=== PATIENT | male | born 1985 | race Caucasian/White ===

== ENCOUNTER 2018-06-14 20:54 | Emergency (ER) | payer BC, OTHER ==
--- NOTE | 2018-06-14 21:42 | EDPHY ---
H & P Time Seen by Provider: 06/14/18 21:24 HPI/ROS: HPI Upper lip laceration. 32-year-old male by private vehicle with significant other. This patient was at work. He had a wrench fall and hit him in the mid upper lip. He sustained a through and through mid upper lip laceration involving the vermilion border. His tetanus status is up-to-date. No other injury or complaint. He denies any dental pain. No malocclusion of the jaw. No neck pain. No loss of consciousness. ROS: Constitutional: No fever, no chills. No weakness. Musculoskeletal: No back pain. No neck pain. As above Skin: No rashes. As above. Neurological: No headache. Past medical history: Hypothyroid. Social history: Chews tobacco. No alcohol. Here with significant other. Physical Exam: General Appearance: Alert, no distress. This patient is responding to questions appropriately and in full sentences. This patient appears well- hydrated and well-nourished. Eyes: Pupils equal and round no pallor or injection. No lid edema, erythema or injection. ENT, Mouth: Significant for a through and through macerated and stellate type mid upper lip laceration involving the vermilion border and with some tissue loss. No foreign body on gross exploration. He has a 0.5 cm puncture wound mid inner upper lip mucosa. Mucous membranes are moist. The pharyngeal tissues are unremarkable. No edema or swelling. No asymmetry suggestive of abscess. No erythema or exudates. Dentition is intact. No malocclusion of the jaw. Neurological: Motor sensory function is grossly intact. Cranial nerves are normal. Gait is normal. Skin: Warm and dry, no rashes. Musculoskeletal: Neck is supple and nontender. Extremities are symmetrical. All joints range without pain or impingement. Psychiatric: No agitation. No depression. Database: EKG: Imaging: Procedures: Procedure: Laceration repair. Verbal consent was obtained from the patient. The 2.5 cm laceration on the mid upper lip was anesthetized in the usual fashion. The wound was irrigated, draped and explored to its base with a gloved finger. No foreign body was identified. The 1st stitch was placed to align the vermilion border. The wound was repaired with 8, 6.0 Prolene interrupted sutures on the outside and 3 , 5.0 Vicryl Rapide sutures to repair the inner lip mucosa. The wound repair was tolerated well and there were no complications. The procedure was performed by myself. Emergency department course: After suture repair, wound care was discussed with the patient. Follow-up and return to emergency department precautions reviewed. Scar prevention discussed. He feels comfortable going home with his girlfriend. Follow-up and return to emergency department precautions reviewed. All of their questions were answered. The patient was discharged in good condition. Differential Diagnosis: The differential diagnosis on this patient includes but is not limited to complex mid upper lip laceration. This represents a partial list of diagnoses considered. These considerations are based on history, physical exam, past history, reassessment and diagnostic testing. Smoking Status: Never smoked Constitutional: Initial Vital Signs Temperature (C) 36.6 C 06/14/18 21:00 Heart Rate 88 06/14/18 21:00 Respiratory Rate 20 06/14/18 21:00 O2 Sat (%) 97 06/14/18 21:00 O2 Delivery Mode Room Air Allergies/Adverse Reactions: No Known Allergies Allergy (Unverified 06/14/18 21:00) Home Medications: Medication Instructions Recorded Levothyroxine 06/14/18 Departure - Departure Disposition: Home, Routine, Self-Care Clinical Impression: Laceration of vermilion border of upper lip Condition: Good Instructions: Care For Your Stitches (ED), Facial Laceration (ED) Additional Instructions: Read and follow provided instructions. Your sutures are to be removed in 5-7 days. Sutures can be removed here. The inside sutures should dissolve in 5 days. If not, they can be removed when you return for the removal of the outside sutures. Follow-up with your primary care physician in 2 days as needed for wound check. Ibuprofen dosin mg every 6 hours with meals for the next 3 days only. Take only as needed for pain. Return to the emergency department for worsening swelling, discoloration, redness, drainage of pus or other serious concerns. Referrals: Samir Khalil MD [Primary Care Provider] - As per Instructions
[2018-06-14 23:02] VITALS: BP 122/62
== END 2018-06-14 23:00 | disposition home or self-care (01) ==
LOC: CED 20:54
PROC: 0CQ0XZZ Repair Upper Lip, External Approach (ICD-10-PCS; principal; 2018-06-14)
DX: S01.511A Laceration without foreign body of lip, initial encounter (principal); W20.8XXA Other cause of strike by thrown, projected or falling object, initial encounter; Y99.0 Civilian activity done for income or pay